=== PATIENT | female | born 1995 | race Caucasian/White ===

== ENCOUNTER 2016-07-12 21:54 | Emergency (ER) ==
[~2016-07-12] VITALS: Ht 154.9 cm; Wt 65.8 kg
[2016-07-12 21:56] VITALS: BP 127/78
[2016-07-12] MEDS ORDERED: ALBU17IN2 INH (22:04)
[2016-07-13] MEDS ORDERED: PRED20TA PO (05:58)
== END 2016-07-13 00:19 | disposition left against medical advice (07) ==
LOC: M ED 23:41
DX: R06.89 Other abnormalities of breathing (principal); Z53.21 Procedure and treatment not carried out due to patient leaving prior to being seen by health care provider

== ENCOUNTER 2016-07-13 01:55 | Emergency (ER) | payer OTHER ==
[~2016-07-13] VITALS: Ht 154.9 cm; Wt 65.8 kg
[~2016-07-13 01:55] MED LIST: ALBU17IN2 INH
[2016-07-13] MEDS ORDERED: METAL LOCK LOOP XX ONE (02:04)
[2016-07-13] MEDS ORDERED: IPRATROPIUM 0.5MG/ALBUTEROL 2.5MG INH SOL UD 3ML (DUONEB)(J7620) NEB ONE (05:30)
[2016-07-13] MEDS ORDERED: predniSONE 20 MG TAB PO ONE (05:30)
[2016-07-13] MEDS ORDERED: PRED20TA PO (05:58)
[2016-07-13 06:14] VITALS: BP 118/65
--- NOTE | 2016-07-13 10:17 | REP ---
CHEST, TWO VIEWS: HISTORY: Dyspnea. COMPARISON: None. FINDINGS: The superior mediastinal structures are midline. The cardiac silhouette is unremarkable in size, shape and position. The diaphragmatic surfaces of the lungs are regular and the costophrenic angles are clear. The pulmonary hill are clear. The imaged osseous structures are intact. IMPRESSION: There is no acute cardiopulmonary disease. Signed by Elian Downs DO 07/13/2016 10:24 A
== END 2016-07-13 06:15 | disposition home or self-care (01) ==
LOC: M ED 04:07
DX: J45.901 Unspecified asthma with (acute) exacerbation (principal); Z79.51 Long term (current) use of inhaled steroids

== ENCOUNTER 2016-07-19 22:13 | Emergency (ER) | payer OTHER ==
[~2016-07-19] VITALS: Ht 154.9 cm; Wt 65.8 kg
[~2016-07-19 22:13] MED LIST changes: +PRED20TA PO
[2016-07-19] MEDS ORDERED: predniSONE 20 MG TAB PO ONE (22:45)
[2016-07-19] MEDS ORDERED: BENZONATATE 100 MG CAP PO ONE (22:45)
[2016-07-19] MEDS ORDERED: ALBUTEROL SULFATE 2.5 MG/0.5 ML INH NEB SOLN NEB ONE (22:45)
[2016-07-19] MEDS ORDERED: ALBU17IN INH (23:26)
[2016-07-19] MEDS ORDERED: PRED20TA PO (23:26)
[2016-07-19] MEDS ORDERED: BENZ200C44 PO (23:26)
[2016-07-19 23:32] VITALS: BP 134/70
== END 2016-07-19 23:34 | disposition home or self-care (01) ==
LOC: M ED 22:39
DX: J98.01 Acute bronchospasm (principal); Z79.51 Long term (current) use of inhaled steroids